=== PATIENT | male | born 1995 | race Caucasian/White ===

== ENCOUNTER 2022-09-23 14:36 | Outpatient (NON) | payer BC, SELFPAY | END 2022-09-23 14:37 | disposition home or self-care (01) | PROVIDERS: PCP Family Medicine; Visit Provider Nurse Practitioner | DX: D22.39 Melanocytic nevi of other parts of face (principal) | CPT/HCPCS: 88305 ==

== ENCOUNTER 2024-06-30 12:30 | Emergency (ER) | payer BC, SELFPAY ==
--- NOTE | ~2024-06-30 | CT_ITS ---
CT soft tissue neck w con Ordering provider: Eduard Oconnor MD History: 29 years Male with . tonsilar eval . Comparison: None. Technique: CT soft tissues neck was performed with contrast. . Automated exposure control and iterat angel reconstruction technique were employed. The dose-length product was 535.86 mGy-cm. 75 mL Omnipaqu e 350 was given IV. Findings: LOWER HEAD: The visualized brain parenchyma, optic globes/orbits and mastoids are normal. The visua lized paranasal sinuses are well aerated. SALIVARY GLANDS: Normal. THYROID: Normal. SUPRAHYOID DEEP SPACES: Enlarged right posterior triangle lymph nodes with the largest measures 1.3 c m. Enlarged left posterior triangle lymph nodes with the largest measures 1.7 cm. Left parapharyngeal enlarged lymph node is seen measuring 1.9 x 2.4 cm. CAROTID ARTERIES: Normal. JUGULAR VEINS: Normal. TONSILS: Enlarged both tonsils with no definite abscess formation. ORAL CAVITY: normal as visualized. PHARYNX, LARYNX AND TRACHEA: Slightly narrowed at the level of the tonsils. Otherwise, Patent and nor mal. No prevertebral soft tissue swelling. SUPERFICIAL SOFT TISSUES: Normal. No lymphadenopathy or neck mass. THORACIC INLET/VISUALIZED UPPER CHEST: Normal. SKELETAL: Normal. IMPRESSION: Enlarged tonsils with no definite peritonsillar abscess. Enlarged lymph nodes in the posterior triangles and in the left parapharyngeal space. Reviewed, dictated and finalized at location A. [employer]
[2024-06-30 12:59] VITALS: BP 130/69; PULSE 94; RESP 17; TEMP 36.9; O2SAT 99
[2024-06-30 15:21] VITALS: BP 129/86; PULSE 88; RESP 15; O2SAT 98
--- NOTE | 2024-06-30 15:59 | ED.GENADULT ---
HPI - General Adult General Chief complaint: Unspecified Stated complaint: MULTI C/O URI SYMPTOMS Time Seen by Provider: 06/30/24 15:35 History of Present Illness HPI narrative: 29-year-old male with a history of recently diagnosed mono in the end of May, recently diagnosed tonsillitis last week. Patient presents to the emergency department with worsening soreness in his throat and difficulty swallowing. He states he has completed 2 rounds of prednisone and started on amoxicillin 2 days prior. Patient states that he had improvement after the 1st round of prednisone anion recurrence of his soreness in his throat this past week. States it hurts to swallow but he is not having difficulty swallowing, no choking sensations or difficulty in breathing. No headache, vision changes or restricted range of motion of his neck. Was told that he had tonsillitis at Urgent Care the other day. Was otherwise in his normal state of health. Does have some myalgias and fever intermittently at home, no other complaints. Related Data Allergies Allergy/AdvReac Type Severity Reaction Status Date / Time house dust Allergy Intermediate rash Verified 06/30/24 15:16 Review of Systems Review of Systems: As reviewed above in HPI [facility] Past Medical History Medical History Exercise-induced asthma Seasonal allergies Family History Family History Grandparent Lung cancer Social History Social History Smoking status: Never smoker Alcohol intake: never Alcohol use details: socially Substance use: never Substance use type: does not use Lack of Transportation: No Lack of Food: Never True Current Housing: I Have Housing Concerned About Future Housing: No Difficulty Paying Gas/Electric Bills: No Difficulty Paying for Meds: No Currently Unemployed: No Education: Bachelor's Degree Difficulty w/ Childcare or Family Care: No Exam Narrative: GENERAL: [Well-appearing, well-nourished, and in no acute distress.] HEAD: [Normocephalic, atraumatic.] EYES: [PERRLA and EOMI.] ENT: Nares clear, no rhinorrhea or epistaxis. Mucous membranes moist. Bilateral tonsillar erythema and mild exudates enlargement. No uvular deviation. No posterior oropharyngeal erythema or bleeding. No base of tongue swelling, no trismus. Full range of motion of the head neck NECK: Supple. No meningismal signs or restricted range of motion. CHEST: [Clear to auscultation. No respiratory distress.] HEART: [Regular rate and rhythm]. No murmur heard. [Normal peripheral pulses.] ABDOMEN: [Soft, nondistended], [nontender], [No rigidity or guarding] EXTREMITIES: Normal range of motion. [No edema.] SKIN: Warm, dry, no rash. NEURO: [No focal deficits]. Alert and oriented [x3.] PSYCH: [Normal mood and affect.] Course Vital Signs Vital signs: Vital Signs Temperature 36.9 C 06/30/24 12:59 Pulse Rate 94 06/30/24 12:59 Respiratory Rate 17 06/30/24 12:59 Blood Pressure 130/69 06/30/24 12:59 Pulse Oximetry 99 06/30/24 12:59 Oxygen Delivery Room Air 06/30/24 12:59 Temperature 36.9 C 06/30/24 12:59 Pulse Rate 72 06/30/24 17:54 Respiratory Rate 17 06/30/24 17:54 Blood Pressure 137/77 06/30/24 17:54 Pulse Oximetry 100 06/30/24 17:54 Oxygen Delivery Room Air 06/30/24 12:59 Medical Decision Making [facility] Narrative Medical decision making narrative: 29-year-old male recently diagnosed with mono about 3 weeks prior and then tonsillitis 1 week prior. Completed 2 weeks of prednisone and is on day 2 of amoxicillin. He is having some worsening throat pain and swelling and occasional difficulty swallowing. He is not short of breath, not nauseous or vomiting. No headache or restricted range of motion. No neck pain, no lymphadenopathy. He is afebrile here, no tachycardia, hypoxia, fever. He does have enlarged tonsils bilaterally with some exudates. No significant airway compromise identified is breathing comfortably. Considerations presently are for bacterial versus viral tonsillitis, peritonsillar abscesses on the differential although less likely. He was swabbed for COVID fluid RSV as well as obtaining a CT scan with contrast of his neck to rule out deep space or peritonsillar abscess. He will be given Decadron and a fluid bolus. Patient had improvement upon reassessment after the steroids and fluids. He has a small white count although he has been on course of antibiotics and steroids which is likely reactive. Normal hemoglobin and platelets. Electrolytes within normal limits, normal creatinine, slightly elevated AST, ALT which is common in mononucleosis. CT scan shows enlarged tonsils with no peritonsillar abscess, enlarged reactive lymph nodes. Given patient's symptomatic improvement inability to tolerate p.o. intake and no concerning findings on his workup I believe he can be safely discharged with regular follow-up with his primary care provider. He will be sent home with a Medrol Dosepak for symptom control and encouraged to maintain good oral hydration and avoid any contact sports until symptom resolution. He was informed about the duration of symptomatology for mononucleosis and return precautions which she verbalized understanding and will safely be discharged at this time. Medical Records Medical records reviewed: Yes I reviewed the external patient's medical records. Vital Signs Vital Signs: Vital Signs Temperature 36.9 C 06/30/24 12:59 Pulse Rate 94 06/30/24 12:59 Respiratory Rate 17 06/30/24 12:59 Blood Pressure 130/69 06/30/24 12:59 Pulse Oximetry 99 06/30/24 12:59 Oxygen Delivery Room Air 06/30/24 12:59 Temperature 36.9 C 06/30/24 12:59 Pulse Rate 72 06/30/24 17:54 Respiratory Rate 17 06/30/24 17:54 Blood Pressure 137/77 06/30/24 17:54 Pulse Oximetry 100 06/30/24 17:54 Oxygen Delivery Room Air 06/30/24 12:59 Lab Data Lab results reviewed: Yes I reviewed the patient's lab results. 06/30/24 16:05 06/30/24 16:05 Labs: Lab Results 06/30/24 06/30/24 Range/Units 16:02 16:05 WBC 14.2 H (4.5-10.0) K/mm3 RBC 5.42 (4.6-6.20) M/mm3 Hgb 15.3 (14.0-18.0) g/dL Hct 46.1 (42.0-52.0) % MCV 85.1 (80-100) fl MCH 28.2 (26-34) pg MCHC 33.2 (32-36) g/dl RDW 12.9 (11.5-14.5) % Plt Count 235 (150-375) k/mm3 MPV 8.8 (7.4-10.4) fl Immature Gran % (Auto) 0.9 H (0-0.5) % Neut % (Auto) 50.0 (45.5-73.1) % Lymph % (Auto) 43.2 (18.3-44.2) % Hubbard % (Auto) 5.2 (2.6-8.5) % Eos % (Auto) 0.1 (0-4.4) % Baso % (Auto) 0.6 (0.2-1.2) % Lymph # (Auto) 6.13 H (0.9-3.2) K/mm3 Hubbard # (Auto) 0.7 H (0.1-0.6) K/mm3 Eos # (Auto) 0.0 (0-0.3) K/mm3 Baso # (Auto) 0.1 (0.0-0.1) K/mm3 Abs Immat Gran (auto) 0.13 H (0.00-0.031) K/mm3 Absolute Neuts (auto) 7.1 H (1.3-6.7) K/mm3 Absolute Nucleated RBC 0.000 (0.0-0.012) K/mm3 Nucleated RBC % 0.0 (0.0-0.2) % Atypical Lymphocytes Present Platelet Estimate Adequate (Adequate) Schistocytes None seen Sodium 136 L (137-145) mmol/L Potassium 4.4 (3.4-5.0) mmol/L Chloride 99 (98-107) mmol/L Carbon Dioxide 28 (22-30) mmol/L Anion Gap 9 (4-12) mmol/L BUN 11 (9-20) mg/dL Creatinine 0.79 (0.7-1.3) mg/dL Estim Creat Clear Calc 125 ml/min Estimated GFR > 60 (59 - ) Glucose 104 (65-110) mg/dL Calcium 8.6 (8.4-10.2) mg/dL Total Bilirubin 1.0 (0.2-1.3) mg/dL AST 72 H (17-59) U/L ALT 252 H (6-50) U/L Alkaline Phosphatase 113 (38-126) U/L Total Protein 8.0 (6.3-8.2) g/dL Albumin 4.2 (3.5-5.1) g/dL Monoscreen Positive A (Negative) Influenza A (RT-PCR) Negative (Negative) Influenza B (RT-PCR) Negative (Negative) SARS-CoV-2 RNA (RT-PCR) Negative (Negative) Group A Strep (PCR) Not detected (Negative) Imaging Data Attestation: I personally reviewed and interpreted this imaging study as follows: My impression: Impressions Soft Tissue Neck CT 06/30/24 18:02 IMPRESSION: Enlarged tonsils with no definite peritonsillar abscess. Enlarged lymph nodes in the posterior triangles and in the left parapharyngeal space. Discharge Plan Discharge Clinical Impression: Acute tonsillitis due to infectious mononucleosis, Acute sore throat Patient Disposition: Home, Self-Care Condition: Stable Instructions: Antibiotic Form, Mononucleosis (ED), Pharyngitis (ED), Tonsillitis (ED) Additional Instructions: You have tonsillitis for mononucleosis which is a viral illness. No abscess formation on your CT scan, nothing to drain or intervene upon. Take Tylenol for fevers, NSAID such as ibuprofen or Advil for pain and we will prescribe you a Medrol Dosepak for inflammation control. Follow-up with regular doctor, symptoms may last several weeks. Avoid contact sports and injuries to her left upper quadrant near the spleen area. Return to work as tolerated. Patient Language: [place] Prescriptions: New ibuprofen 800 mg tablet 800 mg PO TID PRN (Reason: pain) Qty: 30 0RF methylprednisolone [Medrol (Denys)] 4 mg tablets,dose pack See Rx Instructions .ROUTE .COMPLEX Qty: 21 0RF Rx Instructions: orally per package directions ondansetron 4 mg tablet,disintegrating 4 mg PO Q8H PRN (Reason: nausea and vomiting) Qty: 10 0RF Follow-up/Referrals: PHYSICIAN,SKIVER BLOCKERS [Primary Care Provider] - Stand Alone Forms: Work/School Release IP Time of Disposition: 18:35
[2024-06-30 16:13] LABS: Basophils Absolute Auto 0.1 K/mm3 (0.0-0.1); Basophils Percent Auto 0.6 % (0.2-1.2); Eosinophils Percent Auto 0.1 % (0-4.4); Hematocrit 46.1 % (42.0-52.0); Hemoglobin 15.3 g/dL (14.0-18.0); Immature Granulocyte Absolute 0.13 K/mm3 (0.00-0.031); Immature Granulocyte Percent A 0.9 % (0-0.5); Lymphocytes Absolute Auto 6.13 K/mm3 (0.9-3.2); Lymphocytes Percent Auto 43.2 % (18.3-44.2); Mean Corpuscular HGB Conc 33.2 g/dl (32-36); Mean Corpuscular Hemoglobin 28.2 pg (26-34); Mean Corpuscular Volume 85.1 fl (80-100); Mean Platelet Volume 8.8 fl (7.4-10.4); Monocytes Absolute Auto 0.7 K/mm3 (0.1-0.6); Monocytes Percent Auto 5.2 % (2.6-8.5); Neutrophils Absolute Auto 7.1 K/mm3 (1.3-6.7); Platelet Count Result 235 k/mm3 (150-375); Red Blood Count 5.42 M/mm3 (4.6-6.20); Red Cell Distribution Width 12.9 % (11.5-14.5); White Blood Count 14.2 K/mm3 (4.5-10.0)
[2024-06-30 16:23] LABS: Alanine Aminotransferase 252 U/L (6-50); Albumin Level 4.2 g/dL (3.5-5.1); Alkaline Phosphatase 113 U/L (38-126); Anion Gap 9 mmol/L (4-12); Aspartate Amino Transferase 72 U/L (17-59); Blood Urea Nitrogen 11 mg/dL (9-20); Calcium 8.6 mg/dL (8.4-10.2); Carbon Dioxide 28 mmol/L (22-30); Chloride 99 mmol/L (98-107); Estimated CRCL calculation 125 ml/min; Estimated Glomerular Filt Rate > 60; Glucose 104 mg/dL (65-110); Potassium 4.4 mmol/L (3.4-5.0); Sodium 136 mmol/L (137-145)
[2024-06-30 16:29] LABS: Monoscreen Positive (Negative); Negative Monotest Control Negative (Negative); Positive Monotest Control Positive (Positive)
[2024-06-30 16:33] LABS: Atypical Lymphocytes Present; Platelet Estimate Adequate (Adequate); Schistocytes None Seen
[2024-06-30 16:37] LABS: Strep Group A RT-PCR NOT DETECTED (Negative)
[2024-06-30] MEDS: LACTATED RINGERS 1,000 ML 999 ML IV CONT (16:38)
[2024-06-30] MEDS: dexAMETHasone SOD PHOS INJ 10 MG/ML 1 ML VIAL IV PUSH (16:38)
[2024-06-30 16:51] LABS: Influenza A QL RT-PCR Negative (Negative); Influenza B QL RT-PCR Negative (Negative); SARS-CoV-2 RNA PCR Negative (Negative)
[2024-06-30 17:54] VITALS: BP 137/77; PULSE 72; RESP 17; O2SAT 100
== END 2024-06-30 18:46 | disposition home or self-care (01) ==
PROVIDERS: Emergency Provider Student in an Organized Health Care Education/Training Program
DX: J03.90 Acute tonsillitis, unspecified (principal); B27.90 Infectious mononucleosis, unspecified without complication; Z20.822 Contact with and (suspected) exposure to COVID-19
CPT/HCPCS: 36415; 70491; 80053; 85025; 86308; 87636; 87651; 96361; 96374; 99284; J1100; J7120; Q9967